=== PATIENT | male | born 1985 | race African-American/Black ===

== ENCOUNTER 2019-11-25 11:18 | Emergency (ER) | payer OTHER ==
[~2019-11-25] VITALS: Ht 177.8 cm; Wt 113.4 kg
[~2019-11-25 11:18] MED LIST: IBUPROFEN 600600 M1 PO; TRAMADOL 50 MG50 MG PO
[2019-11-25] MEDS ORDERED: LIDODERM1 EACH TRANSDERM (12:59)
[2019-11-25] MEDS ORDERED: MEDROLDOSEPACK PO (12:59)
[2019-11-25] MEDS ORDERED: FLEXERIL PO (12:59)
[2019-11-25 13:07] VITALS: BP 123/68
== END 2019-11-25 13:08 | disposition home or self-care (01) ==
LOC: M.ERS 11:18
DX: S13.4XXA Sprain of ligaments of cervical spine, initial encounter (principal); M54.5 Low back pain; V89.2XXA Person injured in unspecified motor-vehicle accident, traffic, initial encounter; Y93.89 Activity, other specified; Y92.89 Other specified places as the place of occurrence of the external cause; Y99.8 Other external cause status

== ENCOUNTER 2020-02-10 04:10 | Emergency (ER) | payer OTHER ==
[~2020-02-10] VITALS: Ht 177.8 cm; Wt 115.7 kg
[~2020-02-10 04:10] MED LIST changes: +FLEXERIL PO; +LIDODERM1 EACH TRANSDERM; +MEDROLDOSEPACK PO
[2020-02-10] MEDS ORDERED: PENICILLIN VK500 MG PO (04:35)
[2020-02-10] MEDS ORDERED: NORCO 5-325 TA1 EAC1 PO (04:35)
[2020-02-10] MEDS ORDERED: IBUPROFEN 800800 M1 PO (04:35)
[2020-02-10 04:48] VITALS: BP 144/91
== END 2020-02-10 04:51 | disposition home or self-care (01) ==
LOC: M.ERS 04:10
DX: S02.5XXA Fracture of tooth (traumatic), initial encounter for closed fracture (principal); X58.XXXA Exposure to other specified factors, initial encounter; Y93.89 Activity, other specified; Y92.89 Other specified places as the place of occurrence of the external cause; Y99.8 Other external cause status

== ENCOUNTER 2020-05-12 08:39 | Emergency (ER) | payer OTHER ==
[~2020-05-12] VITALS: Ht 177.8 cm; Wt 117.9 kg
[~2020-05-12 08:39] MED LIST changes: +IBUPROFEN 800800 M1 PO; +NORCO 5-325 TA1 EAC1 PO; +PENICILLIN VK500 MG PO
[2020-05-12] MEDS ORDERED: CORTISPORIN OTI10 M2 OTIC (09:14)
[2020-05-12] MEDS ORDERED: NORCO 5-325 TA1 EAC2 PO (09:14)
[2020-05-12] MEDS ORDERED: AMOXICILLIN 50500 MG PO (09:14)
[2020-05-12 09:21] VITALS: BP 139/92
== END 2020-05-12 09:20 | disposition home or self-care (01) ==
LOC: M.ERS 08:39
DX: H66.91 Otitis media, unspecified, right ear (principal); H60.91 Unspecified otitis externa, right ear

== ENCOUNTER 2020-06-02 21:58 | Emergency (ER) | payer OTHER ==
[~2020-06-02] VITALS: Ht 177.8 cm; Wt 117.9 kg
[~2020-06-02 21:58] MED LIST changes: +AMOXICILLIN 50500 MG PO; +CORTISPORIN OTI10 M2 OTIC; +NORCO 5-325 TA1 EAC2 PO
[2020-06-03] MEDS ORDERED: HYDROCODON-ACE1 EAC8 PO (01:16)
[2020-06-03] MEDS ORDERED: AUGMENTIN 875-1 EACH PO (01:16)
[2020-06-03 02:02] VITALS: BP 138/67
== END 2020-06-03 02:02 | disposition home or self-care (01) ==
LOC: M.ERS 21:58
DX: R50.9 Fever, unspecified (principal); R05 Cough; Z20.828 Contact with and (suspected) exposure to other viral communicable diseases